=== PATIENT | female | born 1960 | race Caucasian/White ===

== ENCOUNTER 2020-12-10 20:16 | Emergency (ER) | payer BC ==
[~2020-12-10] VITALS: Ht 162.6 cm; Wt 52.8 kg
[2020-12-10 20:55] LABS: BASOPHILS % (AUTO) 1 % (0-1); EOSINOPHILS % (AUTO) 2 % (1-7); LYMPHOCYTES % (AUTO) 32 % (22-44); MEAN CORPUSCULAR HEMOGLOBIN 31.4 pg (27.0-34.8); MEAN CORPUSCULAR HGB CONC 34.6 g/dL (32.4-35.8); MEAN PLATELET VOLUME 8.1 fL (7.4-10.4); MONOCYTES % (AUTO) 11 % (2-9); NEUTROPHILS % (AUTO) 54 % (42-75); PLATELET COUNT 277 x10^3/uL (130-400); RED BLOOD COUNT 4.04 x10^6/uL (3.82-5.3); RED CELL DISTRIBUTION WIDTH 12.8 % (9.6-15.2)
[2020-12-10 21:03] LABS: ALANINE AMINOTRANSFERASE 19 U/L (12-78); ALBUMIN 3.7 g/dL (3.4-5.0); CALCIUM 8.7 mg/dL (8.5-10.1); CHLORIDE 110 mmol/L (98-107); CREATININE 0.73 mg/dL (0.55-1.02)
[2020-12-10 21:05] LABS: ALKALINE PHOSPHATASE 43 U/L (45-117); BILIRUBIN,TOTAL 0.3 mg/dL (0.2-1.0)
[2020-12-10 21:15] LABS: ANION GAP 3 mmol/L (5-15)
--- NOTE | 2020-12-10 23:54 | NUR ---
TO ROOM FROM LOBBY. NAD.
--- NOTE | 2020-12-11 00:15 | NUR ---
PATIENT AMBULATORY TO RESTROOM.
--- NOTE | 2020-12-11 00:22 | NUR ---
PATIENT TO CT AT THIS TIME.
[2020-12-11 00:29] LABS: MICROSCOPIC AUTO
--- NOTE | 2020-12-11 00:35 | NUR ---
20G L AC IV STARTED IN CT
[2020-12-11] MEDS ORDERED: OMNIPAQUE 350 MG/ML, 100ML BOTTLE ONE (00:39)
--- NOTE | 2020-12-11 00:41 | NUR ---
PATIENT BACK FROM CT AT THIS TIME. CT PLACED 20G L AC
[2020-12-11 00:55] VITALS: BP 134/74
--- NOTE | 2020-12-11 02:37 | NUR ---
Patient given discharge instructions and they have confirmed that they understand the instructions. Patient ambulatory with steady gait. NAD, all questions answered appropriately, denies additional needs at this time. No personal belongings left in room after discharge.
== END 2020-12-11 02:42 | disposition home or self-care (01) ==
LOC: ED 20:28
DX: N89.8 Other specified noninflammatory disorders of vagina (principal); R10.9 Unspecified abdominal pain
CPT/HCPCS: 36415; 74177; 80053; 81001; 85025; 87086; 87491; 87591; 99285; Q9967

== ENCOUNTER 2020-12-26 10:53 | Emergency (ER) | payer BC ==
[~2020-12-26] VITALS: Ht 162.6 cm; Wt 52.6 kg
--- NOTE | 2020-12-26 11:18 | NUR ---
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
--- NOTE | 2020-12-26 11:37 | NUR ---
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
[2020-12-26 12:09] LABS: BASOPHILS % (AUTO) 2 % (0-1); EOSINOPHILS % (AUTO) 3 % (1-7); LYMPHOCYTES % (AUTO) 28 % (22-44); MEAN CORPUSCULAR HGB CONC 33.9 g/dL (32.4-35.8); MONOCYTES % (AUTO) 8 % (2-9); NEUTROPHILS % (AUTO) 60 % (42-75); PLATELET COUNT 298 x10^3/uL (130-400); RED BLOOD COUNT 4.48 x10^6/uL (3.82-5.3); RED CELL DISTRIBUTION WIDTH 12.8 % (9.6-15.2)
[2020-12-26 12:18] LABS: ALBUMIN 3.7 g/dL (3.4-5.0); CALCIUM 9.1 mg/dL (8.5-10.1); CHLORIDE 110 mmol/L (98-107)
[2020-12-26 12:23] LABS: ALANINE AMINOTRANSFERASE 18 U/L (12-78); ALKALINE PHOSPHATASE 50 U/L (45-117); BILIRUBIN,TOTAL 0.4 mg/dL (0.2-1.0); CREATININE 0.65 mg/dL (0.55-1.02); TOTAL PROTEIN 7.3 g/dL (6.4-8.2)
[2020-12-26 12:32] LABS: ANION GAP 4 mmol/L (5-15)
[2020-12-26 16:25] VITALS: BP 127/79
--- NOTE | 2020-12-26 16:51 | NUR ---
LOBBY TECH: PT AMBULATORY TO ROOM ESCORTED BY TECH
== END 2020-12-26 17:47 | disposition home or self-care (01) ==
LOC: ED 11:23
DX: G89.29 Other chronic pain (principal); R10.31 Right lower quadrant pain; R63.4 Abnormal weight loss; F41.9 Anxiety disorder, unspecified
CPT/HCPCS: 36415; 80053; 83690; 85025; 99283